=== PATIENT | male | born 2000 | race African-American/Black ===

== ENCOUNTER 2019-07-31 15:08 | Emergency (ER) | payer SELFPAY ==
[~2019-07-31] VITALS: Ht 160 cm; Wt 59.0 kg
[2019-07-31] MEDS ORDERED: TETANUS, DIPHTHERIA, PERTUSSIS VAC/PF 0.5ML (>7YR OLD) IM ONE (15:15)
[2019-07-31] MEDS ORDERED: LIDOCAINE HCL/EPINEPHRINE 1%-EPI 1:100,000 20 ML VIAL ONE (15:28)
[2019-07-31] MEDS ORDERED: MORPHINE SULFATE 10 MG/ML CPJ ONE (15:37)
[2019-07-31] MEDS ORDERED: ONDANSETRON HCL 4MG/2ML INJ ONE (15:38)
[2019-07-31 15:49] LABS: BASOPHILS % 1.1 % (0.0-2.0); EOSINOPHILS % 1.6 % (0.0-5.0); HEMATOCRIT. 43.1 % (42.0-52.0); LYMPHOCYTES % 22.4 % (20.0-50.0); MEAN CORPUSCULAR HEMOGLOBIN 30.2 pg (28.0-32.0); MEAN PLATELET VOLUME 9.2 fl (7.4-10.4); MONOCYTES % 7.3 % (2.0-8.0); NEUTROPHILS % 67.6 % (40.0-76.0); PLATELET 256 x1000/uL (130-400); RED BLOOD CELL COUNT 4.63 mill/uL (4.7-6.1); RED CELL DISTRIBUTION WIDTH 13.9 % (11.6-14.6)
[2019-07-31 15:53] LABS: CHLORIDE 108 mEq/L (98-107); PROTHROMBIN TIME 10.7 sec (9.6-11.0)
[2019-07-31] MEDS ORDERED: PIPERACILLIN/TAZOBACTAM 3.375GM/50ML PREMIX IV NR (16:00)
[2019-07-31] MEDS ORDERED: MORPHINE SULFATE 4 MG/ML CPJ (NOT FOR IM USE) IV ONE ×2 (16:00→17:00)
[2019-07-31 16:24] VITALS: BP 149/92
== END 2019-07-31 16:26 | disposition short-term general hospital (02) ==
LOC: ER 15:08
DX: S41.101A Unspecified open wound of right upper arm, initial encounter (principal); W34.09XA Accidental discharge from other specified firearms, initial encounter; Y93.89 Activity, other specified; Y92.89 Other specified places as the place of occurrence of the external cause; Y99.8 Other external cause status; Z98.890 Other specified postprocedural states
CPT/HCPCS: 32551; 36415; 71045; 80053; 85025; 85610; 86850; 86900; 86901; 90471; 90715; 99291; J2270; J2405; J3490

== ENCOUNTER 2019-08-14 08:11 | Emergency (ER) | payer OTHER ==
[~2019-08-14] VITALS: Ht 160 cm; Wt 55.0 kg
[2019-08-14] MEDS ORDERED: FLUTICASONE PROPIONATE 50MCG/SPRAY BOTTLE BOTHNSTRLS STA (08:50)
[2019-08-14 09:28] LABS: BASOPHILS % 0.9 % (0.0-2.0); EOSINOPHILS % 0.2 % (0.0-5.0); HEMOGLOBIN. 9.4 g/dL (14.0-18.0); LYMPHOCYTES % 11.2 % (20.0-50.0); MEAN CORPUSCULAR HEMOGLOBIN 30.2 pg (28.0-32.0); MEAN CORPUSCULAR VOLUME 89.7 fL (80.0-94.0); MEAN PLATELET VOLUME 7.4 fl (7.4-10.4); MONOCYTES % 14.9 % (2.0-8.0); NEUTROPHILS % 72.8 % (40.0-76.0); PLATELET 549 x1000/uL (130-400); RED BLOOD CELL COUNT 3.12 mill/uL (4.7-6.1); RED CELL DISTRIBUTION WIDTH 14.2 % (11.6-14.6)
[2019-08-14 09:33] LABS: CHLORIDE 106 mEq/L (98-107)
[2019-08-14 10:11] VITALS: BP 137/87
[2019-08-14] MEDS ORDERED: ACETAMINOPHEN 325MG TABLET PO ONE (10:30)
== END 2019-08-14 11:49 | disposition home or self-care (01) ==
LOC: ER 09:06
DX: S21.131D Puncture wound without foreign body of right front wall of thorax without penetration into thoracic cavity, subsequent encounter (principal); B34.9 Viral infection, unspecified; W33.01XD Accidental discharge of shotgun, subsequent encounter
CPT/HCPCS: 36415; 71045; 87804; 99284

== ENCOUNTER 2024-05-07 16:02 | Emergency (ER) | payer SELFPAY ==
[~2024-05-07] VITALS: Ht 157.5 cm; Wt 63.6 kg
[2024-05-07] MEDS: HYDROMORPHONE HCL/PF 2MG/ML INJ IM ONE (16:55)
[2024-05-07] MEDS: ONDANSETRON HCL 4MG/2ML INJ IV ONE (17:13)
[2024-05-07] MEDS ORDERED: NAPR500T7 MT (17:48)
[2024-05-07 17:50] VITALS: BP 150/116; PULSE 72; RESP 17
[2024-05-07] MEDS ORDERED: NAPROXEN 375MG TABLET PO ONE (18:00)
[2024-05-07] MEDS: NAPROXEN 500MG TABLET PO NR (18:15)
[2024-05-07] MEDS: PROPOFOL 200MG/20ML VIAL IV PRN (19:59)
== END 2024-05-07 18:15 | disposition home or self-care (01) ==
LOC: ER 16:02
DX: S43.004A Unspecified dislocation of right shoulder joint, initial encounter (principal); W34.09XA Accidental discharge from other specified firearms, initial encounter; Y93.89 Activity, other specified; Y92.89 Other specified places as the place of occurrence of the external cause; Y99.8 Other external cause status
CPT/HCPCS: 73030; 23650; 99152; 99285; J2405; J2704; J1170; Z7610 ×3; A4565